=== PATIENT | female | born 1980 | race Caucasian/White ===

== ENCOUNTER 2024-05-09 13:24 | Inpatient (IN) ==
--- NOTE | 2024-05-09 13:36 | ED Triage Note ---
Date of Service May 09, 2024 Provider in Triage Author: Federico Gunter History of Present Illness This patient was briefly evaluated while in triage. An abbreviated physical exam was performed. This patient is a 43-year-old Female who presents to the ED for evaluation sent by [employer] diagnosed with "pneumonia" URI symptoms x 1.5 weeks, worsening SOB, elevated heart rate in office cough and shortness of breath Physical Exam GENERAL: NAD, sat 88-89% tachycardic in 120s, ambulatory CARDIOVASCULAR: RRR RESPIRATORY: BS diminished ABDOMEN: BS x 4. Nontender to palpation. Initial orders for labs and / or imaging were placed and patient was placed in the waiting area until a bed is available. Please see further documentation for the full ED course.
[2024-05-09 14:13] LABS: Basophils # (auto) 0.05 K/uL (0.00-0.20); Basophils % (auto) 0.4 %; Eosinophils # (auto) 0.22 K/uL (0.00-0.50); Hematocrit (blood only) 39.8 % (37.0-47.0); Hemoglobin 13.6 g/dl (12.0-16.0); Immature Granulocytes % (auto) 0.9 %; Lymphocytes # (auto) 1.05 K/uL (1.20-3.40); Lymphocytes % (auto) 9.4 %; Mean Corpuscular Hemoglobin 32.4 pg (25.0-34.0); Mean Corpuscular Hgb Conc 34.2 g/dL (32.0-36.0); Mean Corpuscular Volume 94.8 fL (80.0-100.0); Mean Platelet Volume 9.2 fL (9.4-12.4); Monocytes # (auto) 0.48 K/uL (0.11-0.59); Monocytes % (auto) 4.3 %; Neutrophils # (auto) 9.26 K/uL (1.40-6.50); Platelet Count 479 K/uL (130-400); RDW Coefficient of Variation 11.5 % (11.5-14.5); RDW Standard Deviation 40.1 fL (36.4-46.3); White Blood Count 11.16 K/ul (4.8-10.8)
[2024-05-09 14:24] LABS: Albumin Level 4.2 gm/dl (3.4-5.0); BUN Creatinine Ratio 10.7 (10-20); Bilirubin,Total 0.7 mg/dl (0.2-1.0); Calcium 9.4 mg/dl (8.6-10.3); Creatinine Clr Calc Pharmacy 159.3 ml/min; Est GFR (African American) 133.3 ml/min; Globulin 4.4 gm/dl (2.5-4.0); Potassium 3.4 mmol/L (3.5-5.1); Total Protein 8.6 gm/dl (6.0-8.3)
[2024-05-09] MEDS: ALBUT/IPRATROP 3MG/0.5MG NEB 3 ML VIAL NEB STA ×2 (14:27→14:28)
[2024-05-09 14:31] LABS: Troponin I High Sensitivity 5.5 pg/ml (0-14)
[2024-05-09 14:36] LABS: Pregnancy Test, Serum Negative (Negative)
[2024-05-09 14:38] LABS: Partial Thromboplastin Ratio 0.9; Partial Thromboplastin Time 25 Seconds (21-31); Prothrombin Time 10.9 Seconds (9.0-12.0)
[2024-05-09] MEDS: methylPREDNISolone 125 MG/2 ML VIAL IV STA (14:44)
--- NOTE | 2024-05-09 15:00 | Emergency Department Note ---
History of Present Illness General Chief Complaint: Illness Stated Complaint: PNEUMONIA, REF BY [facility] Time Seen by Provider: 05/09/24 14:02 History of Present Illness Provider Complaint: shortness of breath and cough Onset (ago): week(s) (1.5) Severity: severe Consistency/Duration: + progressively worsening Relieved By: + nothing Exacerbated By: + exertion and + coughing Context: + recent illness (Son has similar symptoms) Known history of: asthma and recurrent pneumonia Associated symptoms: + fever, + cough, + wheezing, + sputum production and + chest congestion; no hemoptysis, no nausea/vomiting, no abdominal pain or no rash Home Medications Medication Instructions Recorded Confirmed Type cetirizine 10 mg tablet (Zyrtec) 10 mg PO DAILY 05/27/23 05/09/24 History desogestrel 0.15 mg-ethinyl 1 tab PO DAILY 05/27/23 05/09/24 History estradiol 0.03 mg tablet (Enskyce) montelukast 10 mg tablet 10 mg PO DAILY 05/09/24 05/09/24 History Allergies Allergy/AdvReac Type Severity Reaction Status Date / Time erythromycin base Allergy Unknown HAPPENED Verified 05/09/24 16:04 AN Past Med/Surg History Problem List (Updated 05/09/24 @ 19:58 by Federico Gunter MD) Hypoxia (Acute) Bilateral pneumonia (Acute) Toe fracture Elevated BP without diagnosis of hypertension Rhinitis, allergic (Acute) Mitral regurgitation (Acute) Hyperlipidemia (Acute) Allergic rhinitis due to pollen (Acute) Allergic rhinitis due to dust (Acute) Allergic rhinitis due to animal dander (Acute) Abnormal finding on examination of thyroid gland (Acute) Premature rupture of membranes (Acute) Ruptured ectopic (Acute 04/09/14) Medical History (Updated 05/09/24 @ 19:58 by Federico Gunter MD) Pneumonia Surgical History S/P exploratory laparotomy S/P tonsillectomy and adenoidectomy Family History Father Diabetes Depression Obesity Hemochromatosis Sister Thyroid disorder Acute colitis Allergic rhinitis Asthma Brother Intolerance to milk products Mother Non-Hodgkin lymphoma Social History Smoking Status: Never smoker Hx Alcohol Use: Yes Preferred Language: Northern Irish marital status: Current Living Situation: Family current occupational status: employed Feels Safe at Home: Yes Physical Exam 2 Vital Signs: Vital Signs - 24 hr 05/09/24 13:34 05/09/24 13:39 05/09/24 14:16 Temperature 36.8 C Temperature Source Temporal Artery Sc an Pulse Rate 123 H 120 H Pulse Rate [Finger ] Pulse Rhythm Pulse Rhythm [Fing er] Pulse Strength [Fi nger] Respiratory Rate 22 Respiratory Effort / Characteristics Respiratory Depth Normal Respiratory Patter n Blood Pressure 154/88 H Blood Pressure [Ri ght Arm] Blood Pressure Suzanna n 110 Blood Pressure Suzanna n [Right Arm] Blood Pressure Pos ition [Right Arm] Pulse Oximetry 90 89 L Oxygen Delivery Me thod Room Air Room Air Oxygen Flow Rate Sepsis Recent Feve r Within 48 Hours Yes Sepsis New/Unexpla ined Change in Men tamra Status No Sepsis Action Take n by Nursing Adv Provider Notif ied Oxygen Flow Rate - Titration 2 Pulse Oximetry Pos t Tiitration 96 05/09/24 14:30 05/09/24 15:19 05/09/24 15:28 Temperature Temperature Source Pulse Rate 119 H Pulse Rate [Finger ] 112 H Pulse Rhythm Regular Pulse Rhythm [Fing er] Regular Pulse Strength [Fi nger] Normal Respiratory Rate 20 20 Respiratory Effort / Characteristics Non-Labored Respiratory Depth Normal Respiratory Patter n Regular Blood Pressure Blood Pressure [Ri ght Arm] 162/93 H Blood Pressure Suzanna n Blood Pressure Suzanna n [Right Arm] 116 Blood Pressure Pos ition [Right Arm] Lying Pulse Oximetry 97 94 92 Oxygen Delivery Me thod Room Air Nasal Cannula Nasal Cannula Oxygen Flow Rate 2 2 Sepsis Recent Feve r Within 48 Hours Sepsis New/Unexpla ined Change in Men tamra Status Sepsis Action Take n by Nursing Oxygen Flow Rate - Titration Pulse Oximetry Pos t Tiitration 05/09/24 16:00 Temperature Temperature Source Pulse Rate Pulse Rate [Finger ] 115 H Pulse Rhythm Pulse Rhythm [Fing er] Regular Pulse Strength [Fi nger] Normal Respiratory Rate 20 Respiratory Effort / Characteristics Spontaneous Respiratory Depth Normal Respiratory Patter n Regular Blood Pressure Blood Pressure [Ri ght Arm] 162/91 H Blood Pressure Suzanna n Blood Pressure Suzanna n [Right Arm] 114 Blood Pressure Pos ition [Right Arm] Pulse Oximetry 91 Oxygen Delivery Me thod Nasal Cannula Oxygen Flow Rate 2 Sepsis Recent Feve r Within 48 Hours Sepsis New/Unexpla ined Change in Men tamra Status Sepsis Action Take n by Nursing Oxygen Flow Rate - Titration Pulse Oximetry Pos t Tiitration Physical Exam: Physical Exam HENT: Exam performed. - Head: Normocephalic and atraumatic. EYES: Conjunctivae and EOM are normal. Right eye exhibits no discharge. Left eye exhibits no discharge. No scleral icterus. NECK: Normal range of motion. Neck supple. No JVD present. CV: Tachycardic rate, regular rhythm, normal heart sounds and intact distal pulses. There is no peripheral edema. Palpable radial pulses bue. PULM/CHEST: Tachypneic. Expiratory wheezes and rhonchi bilaterally. ABD: The abdomen is soft. There is no tenderness. NEURO: Motor and sensation grossly intact. SKIN: Skin is warm and dry. He is not diaphoretic. PSYCH: normal mood and affect. Behavior is normal. Judgment and thought content normal. Course Course 1402: The patient was evaluated in room A9. A complete history and physical exam was performed Cardiac monitoring: An order was placed for continuous cardiac monitoring. The monitor shows a rate of 110 with sinus tachycardia rhythm interpreted by me Patient found to be hypoxic on room air. Supplemental oxygen was applied via nasal cannula which improved the patient's oxygen saturation. Sepsis protocols initiated. DuoNebs and Solu-Medrol ordered for the patient. 1545: Vital signs stable on supplemental oxygen via nasal cannula.Labs show a white blood cell count of 11.[address] of the chest shows no PE but does show multifocal pneumonia. Patient be treated with IV Rocephin and oral doxycycline and admitted to the [facility] hospitalist team. Dr. Vance team notified. Administered Medications Albuterol (Albut/Ipratrop 3mg/0.5mg Neb 3 Ml Vial) 3 ml NEB Q6R CHRISTIANNE; Protocol Stop: 06/08/24 18:59 Last Admin: 05/09/24 19:09 Dose: 3 ml Documented By: LESLI Discontinued Medications Albuterol (Albut/Ipratrop 3mg/0.5mg Neb 3 Ml Vial) 3 ml NEB NOW STA; Protocol Stop: 05/09/24 14:10 Last Admin: 05/09/24 14:27 Dose: 3 ml Documented By: MADDI Albuterol (Albut/Ipratrop 3mg/0.5mg Neb 3 Ml Vial) 3 ml NEB NOW STA; Protocol Stop: 05/09/24 14:11 Last Admin: 05/09/24 14:28 Dose: 3 ml Documented By: MADDI Doxycycline Hyclate (Doxycycline Hyclate 100 Mg Cap) 100 mg PO NOW STA Stop: 05/09/24 15:44 Last Admin: 05/09/24 16:02 Dose: 100 mg Documented By: DAMASO Sodium Chloride (Nss) 1,000 mls @ 999 mls/hr IV .Q1H1M CHRISTIANNE Stop: 05/09/24 14:40 Last Infusion: 05/09/24 17:11 Dose: Infused Documented By: Admin: 05/09/24 16:03 Dose: 999 mls/hr Documented By: DAMASO Sodium Chloride (Nss) 1,000 mls @ 999 mls/hr IV .Q1H1M ONE Stop: 05/09/24 15:09 Last Infusion: 05/09/24 16:07 Dose: Infused Documented By: Admin: 05/09/24 15:03 Dose: 999 mls/hr Documented By: MADDI Ceftriaxone Sodium (Rocephin) 2,000 mg in 50 mls @ 100 mls/hr IV NOW STA Stop: 05/09/24 16:12 Last Infusion: 05/09/24 16:46 Dose: Infused Documented By: Admin: 05/09/24 16:02 Dose: 100 mls/hr Documented By: DAMASO Ioversol (Optiray 320 125ml) 119 ml IV ONCE ONE Stop: 05/09/24 15:01 Last Admin: 05/09/24 15:01 Dose: 119 ml Documented By: LEON Methylprednisolone (Methylprednisolone 125 Mg/2 Ml Vial) 125 mg IV NOW STA Stop: 05/09/24 14:10 Last Admin: 05/09/24 14:44 Dose: 125 mg Documented By: MADDI Medical Decision Making Laboratory Data Attestation: I reviewed the patient's lab results. 05/09/24 13:48 05/09/24 13:48 Lab Results 05/09/24 05/09/24 05/09/24 Range/Units 13:48 14:05 15:13 WBC 11.16 H (4.8-10.8) K/ul RBC 4.20 (4.20-5.40) M/uL Hgb 13.6 (12.0-16.0) g/dl Hct 39.8 (37.0-47.0) % MCV 94.8 (80.0-100.0) fL MCH 32.4 (25.0-34.0) pg MCHC 34.2 (32.0-36.0) g/dL RDW Std Deviation 40.1 (36.4-46.3) fL RDW Coeff of Tu 11.5 (11.5-14.5) % Plt Count 479 H (130-400) K/uL MPV 9.2 L (9.4-12.4) fL Immature Gran % (Auto) 0.9 % Neut % (Auto) 83.0 % Lymph % (Auto) 9.4 % [place] % (Auto) 4.3 % Eos % (Auto) 2.0 % Baso % (Auto) 0.4 % Neut # (Auto) 9.26 H (1.40-6.50) K/uL Lymph # (Auto) 1.05 L (1.20-3.40) K/uL [place] # (Auto) 0.48 (0.11-0.59) K/uL Eos # (Auto) 0.22 (0.00-0.50) K/uL Baso # (Auto) 0.05 (0.00-0.20) K/uL Immature Gran # (Auto) 0.10 (0.01-0.20) K/uL PT 10.9 (9.0-12.0) Seconds INR 1.0 (0.9-1.1) APTT 25 (21-31) Seconds PTT Ratio 0.9 VBG pH 7.39 (7.36-7.41) VBG pCO2 37 L (38-50) mmHg VBG pO2 38 mmHg VBG HCO3 22 mmol/L VBG O2 Saturation 61.8 % VBG Base Excess -2.2 mEq/L Sodium 134 L (136-145) mmol/L Potassium 3.4 L (3.5-5.1) mmol/L Chloride 99 (98-107) mmol/L Carbon Dioxide 25 (21-32) mmol/L Anion Gap 10 (3-11) BUN 6 (6-23) mg/dl Creatinine 0.56 L (0.6-1.2) mg/dl Est Cr Clr Drug Dosing 159.3 ml/min Est GFR ( Amer) 133.3 ml/min Est GFR (Non-Af Amer) 115.0 ml/min BUN/Creatinine Ratio 10.7 (10-20) Glucose 100 H (70-99(Fasting)) mg/dl Lactate 1.2 (0.4-2.0) mmol/L Calcium 9.4 (8.6-10.3) mg/dl Total Bilirubin 0.7 (0.2-1.0) mg/dl AST 55 H (13-39) U/L ALT 33 (7-52) U/L Alkaline Phosphatase 76 (34-104) U/L Troponin I High Sens 5.5 (0-14) pg/ml Total Protein 8.6 H (6.0-8.3) gm/dl Albumin 4.2 (3.4-5.0) gm/dl Globulin 4.4 H (2.5-4.0) gm/dl Albumin/Globulin Ratio 1.0 (0.9-2) Procalcitonin 0.16 (0-0.5) ng/ml HCG, Qual Negative (Negative) Adenovirus (PCR) Not Detected (NotDetected) B. pertussis DNA (PCR) Not Detected (NotDetected) B.parapertussis DNA PCR Not Detected (NotDetected) C. pneumoniae DNA (PCR) Not Detected (NotDetected) Coronavirus OC43 (PCR) Not Detected (NotDetected) Coronavirus HKU1 (PCR) Not Detected (NotDetected) Coronavirus 229E (PCR) Not Detected (NotDetected) SARS-CoV-2 (PCR) Not Detected (NotDetected) Coronavirus NL63 (PCR) Not Detected (NotDetected) Human Metapneumovir PCR Not Detected (NotDetected) Influenza Type A (PCR) Not Detected (NotDetected) Influenza Type B (PCR) Not Detected (NotDetected) M. pneumoniae (PCR) Not Detected (NotDetected) Parainfluenza 1 (PCR) Not Detected (NotDetected) Parainfluenza 2 (PCR) Not Detected (NotDetected) Parainfluenza 3 (PCR) Not Detected (NotDetected) Parainfluenza 4 (PCR) Not Detected (NotDetected) RSV (PCR) Not Detected (NotDetected) Entero/Rhino (PCR) Not Detected (NotDetected) Imaging Data Radiologist's Impression: Chest CTA 05/09/24 13:36 CT angio chest PE protocol CLINICAL HISTORY: Pneumonia, tachycardic, hypoxic TECHNIQUE: Multidetector row helical CT of the chest was performed with angiographic protocol. Coronal and sagittal reformations were obtained. Coronal and sagittal MIPS were obtained from the axial data set and were submitted for review. Automated dose lowering techniques and/or adjustment according to patient size were utilized for this exam. CT DOSE: 767.74 mGy.cm Comparison: None available at the time of this dictation. FINDINGS: Lungs and pleura: Multifocal consolidative opacities are seen in the left greater than right lower lung. Heart and pericardium: Heart size is normal. No pericardial effusion. Vessels: Evaluation for pulmonary embolism is limited due to suboptimal contrast timing. No evidence of central, lobar, or segmental embolus. Mediastinum and tom: Subcentimeter lymph nodes are seen. Chest wall and lower neck: Unremarkable. Abdomen: Unremarkable. Bones: Minimal degenerative changes are seen. IMPRESSION: No pulmonary embolus. Multifocal pneumonia is seen with reactive subcentimeter lymph nodes. ACT 112: Negative or not required by law. Electronically signed by: Mo Corbin M.D. 05/09/2024 3:15 PM ECG Data Attestation: I personally reviewed and interpreted this ECG as follows: Interpretation: Sinus tachycardia with rate of 126. NJ 142 QRS [address] elevation or ST depression. [facility] Narrative 1402: The patient was evaluated in room A9. A complete history and physical exam was performed Cardiac monitoring: An order was placed for continuous cardiac monitoring. The monitor shows a rate of 110 with sinus tachycardia rhythm interpreted by me Patient found to be hypoxic on room air. Supplemental oxygen was applied via nasal cannula which improved the patient's oxygen saturation. Sepsis protocols initiated. DuoNebs and Solu-Medrol ordered for the patient. 1545: Vital signs stable on supplemental oxygen via nasal cannula.Labs show a white blood cell count of 11.[address] of the chest shows no PE but does show multifocal pneumonia. Patient be treated with IV Rocephin and oral doxycycline and admitted to the [facility]ist team. Dr. Vance team notified. Impression & Plan Bilateral pneumonia, Hypoxia Critical Care Time Critical Care Time: Yes Total Critical Care Time: 42 I have personally spent greater than 42 minutes of critical care time in the direct management of this patient. This includes bedside care, interpretation of diagnostic studies, and testing, discussion with consultants, patient, and family members, and other required patient management activities. This 42 minutes is in excess of all separately billable procedures. Discharge Plan Visit Data Chief Complaint: Illness Stated Complaint: PNEUMONIA, REF BY [facility] ED Provider: Federico Gunter Discharge Problem: Bilateral pneumonia, Hypoxia Patient Disposition: Admitted As Inpatient Discharge Instructions Interventions: ED Discharge Assessment Last Done: 05/09/24 19:35 Discharge Problem: Bilateral pneumonia Qualifiers: Pneumonia type: due to unspecified organism Lung location: unspecified part of lung Qualified Code(s): J18.9 - Pneumonia, unspecified organism
[2024-05-09] MEDS: OPTIRAY 320 125ml IV ONE (15:01)
[2024-05-09] MEDS: SODIUM CHLORIDE 0.9% 1,000 ML IV ONE (15:03)
[2024-05-09 15:16] LABS: Adenovirus PCR Not Detected (NotDetected); Bordetella parapertussis PCR Not Detected (NotDetected); Bordetella pertussis PCR Not Detected (NotDetected); Chlamydia pneumoniae PCR Not Detected (NotDetected); Coronavirus 229E PCR Not Detected (NotDetected); Coronavirus CoV-2 (COVID19)PCR Not Detected (NotDetected); Coronavirus HKU1 PCR Not Detected (NotDetected); Coronavirus NL63 PCR Not Detected (NotDetected); Coronavirus OC43PCR Not Detected (NotDetected); Human Metapneumovirus PCR Not Detected (NotDetected); Influenza A PCR Not Detected (NotDetected); Influenza B PCR Not Detected (NotDetected); Mycoplasma pneumoniae PCR Not Detected (NotDetected); Parainfluenza Virus 1 PCR Not Detected (NotDetected); Parainfluenza Virus 2 PCR Not Detected (NotDetected); Parainfluenza Virus 3 PCR Not Detected (NotDetected); Parainfluenza Virus 4 PCR Not Detected (NotDetected); Respiratory Syncytial VirusPCR Not Detected (NotDetected); Rhinovirus/Enterovirus PCR Not Detected (NotDetected)
--- NOTE | 2024-05-09 15:17 | CT Scan Report ---
CT angio chest PE protocol CLINICAL HISTORY: Pneumonia, tachycardic, hypoxic TECHNIQUE: Multidetector row helical CT of the chest was performed with angiographic protocol. Ryan l and sagittal reformations were obtained. Coronal and sagittal MIPS were obtained from the axial matti a set and were submitted for review. Automated dose lowering techniques and/or adjustment according to patient size were utilized for this exam. CT DOSE: 767.74 mGy.cm Comparison: None available at the time of this dictation. FINDINGS: Lungs and pleura: Multifocal consolidative opacities are seen in the left greater than right lower bijan ng. Heart and pericardium: Heart size is normal. No pericardial effusion. Vessels: Evaluation for pulmonary embolism is limited due to suboptimal contrast timing. No evidence of central, lobar, or segmental embolus. Mediastinum and tom: Subcentimeter lymph nodes are seen. Chest wall and lower neck: Unremarkable. Abdomen: Unremarkable. Bones: Minimal degenerative changes are seen. IMPRESSION: No pulmonary embolus. Multifocal pneumonia is seen with reactive subcentimeter lymph nodes. ACT 112: Negative or not required by law. Electronically signed by: Mo Corbin M.D. 05/09/2024 3:15 PM
[2024-05-09 15:26] LABS: Base Excess VBG -2.2 mEq/L; HCO3 VBG 22 mmol/L; Oxygen Saturation VBG 61.8 %; PCO2 VBG 37 mmHg (38-50); PO2 VBG 38 mmHg; pH VBG 7.39 (7.36-7.41)
--- NOTE | 2024-05-09 15:46 | Electrocardiogram Report ---
Test Reason : Blood Pressure : / mmHG Vent. Rate : 126 BPM Atrial Rate : 126 BPM P-R Int : 142 ms QRS Dur : 070 ms QT Int : 314 ms P-R-T Axes : 056 041 026 degrees QTc Int : 454 ms Sinus tachycardia Otherwise normal ECG No previous ECGs available Confirmed by Abelardo Breen ([id number]) on 05/09/2024 3:46:31 PM Referred By: Confirmed By:Abelardo Breen
[2024-05-09] MEDS: cefTRIAXone SODIUM 2,000 MG/50 ML BAG IV STA (16:02)
[2024-05-09] MEDS: DOXYCYCLINE HYCLATE 100 MG CAP PO STA (16:02)
[2024-05-09] MEDS: SODIUM CHLORIDE 0.9% 1,000 ML IV SCH (16:03)
[2024-05-09] MEDS ORDERED: ALBUTEROL 0.083% NEBU SOLN 3 ML VIAL NEB PRN (16:41)
[2024-05-09] MEDS ORDERED: ACETAMINOPHEN 325 MG TAB PO PRN (16:41)
--- NOTE | 2024-05-09 17:08 | History & Physical Report ---
Date of Service May 09, 2024 Assessment & Plan (1) Bilateral pneumonia: Plan: Assessment: 1. Acute bilateral pneumonia. Sputum cultures. Blood cultures. IV doxycycline. IV Rocephin. The patient is alert with erythema-patient antibiotics. In addition we have ordered nebulizers. She had 125 mg of Solu- Medrol the ER. I will give no more steroids at this time this can be evaluated tomorrow on rounds to see if further steroid therapy may be necessary. It is noted that her respiratory viral panel was all negative. 2. History of asthma. 3. Mild acute hypoxemic respiratory failure with pulse ox 89% on room air. Oxygen therapy. Pulmonary toilet as above. It is noted that CTA was performed and negative for pulmonary embolism. 4. Oral contraceptive use. Patient's beta hCG was negative today. We did prenatal genetic counselor her that her oral contraceptives will not be as effective while on oral antibiotic therapy and if active to use additional form of contraception until her next cycle is completed. Patient voiced understanding. Plan: As scribed above. Please refer to orders for further planning. History of Present Illness Chief Complaint: Shortness of breath, cough, fever. Primary Care Provider: Kishan Casey MD This is a pleasant 31-year-old female has had the above symptoms ongoing for approximately 1 and half to 2 weeks. She been having intermittent fevers as well. Her shortness of breath and fevers but worse over the last 36 to 48 hours therefore she presented to the ER for further evaluation and treatment. This is the first time she has sought evaluation for the above symptoms over the last 2 weeks. Presentation to the ER patient was found to be hypoxic 89% on room air. Tachycardic 150 bpm. CTA of the chest was performed was negative for PE but positive for bilateral multifocal pneumonia. White count mildly elevated. Course in ER she received IV Rocephin and IV doxycycline she is allergic to erythromycin based antibiotics. Recall that the patient further evaluation and treatment. Allergies Allergy/AdvReac Type Severity Reaction Status Date / Time erythromycin base Allergy Unknown HAPPENED Verified 05/09/24 16:04 AN Home Medications Medication Instructions Recorded Confirmed Type cetirizine 10 mg tablet (Zyrtec) 10 mg PO DAILY 05/27/23 05/09/24 History desogestrel 0.15 mg-ethinyl 1 tab PO DAILY 05/27/23 05/09/24 History estradiol 0.03 mg tablet (Enskyce) montelukast 10 mg tablet 10 mg PO DAILY 05/09/24 05/09/24 History Past Med/Surg History Problem List (Updated 05/09/24 @ 17:06 by Dakota Vance, PhD, DO) Bilateral pneumonia Toe fracture Elevated BP without diagnosis of hypertension Rhinitis, allergic (Acute) Mitral regurgitation (Acute) Hyperlipidemia (Acute) Allergic rhinitis due to pollen (Acute) Allergic rhinitis due to dust (Acute) Allergic rhinitis due to animal dander (Acute) Abnormal finding on examination of thyroid gland (Acute) Premature rupture of membranes (Acute) Ruptured ectopic (Acute 04/09/14) Medical History (Updated 05/09/24 @ 17:06 by Dakota Vance, PhD, DO) Pneumonia Surgical History S/P exploratory laparotomy S/P tonsillectomy and adenoidectomy Family History Father Diabetes Depression Obesity Hemochromatosis Sister Thyroid disorder Acute colitis Allergic rhinitis Asthma Brother Intolerance to milk products Mother Non-Hodgkin lymphoma Social History Smoking Status: Never smoker Hx Alcohol Use: Yes Preferred Language: Chinese marital status: Current Living Situation: Family current occupational status: employed Feels Safe at Home: Yes Review of Systems Review of Systems: A 10 point review of system was obtained and unless otherwise stated here or in history of present illness are negative and noncontributory to chief complaint. Physical Exam Physical Exam: In General: In general is a 41-year-old female is alert and oriented x 3 at the time my exam. Is mildly tachypneic approximate 26 breaths per minute. She is still tachycardic on 110 bpm. HEENT: Normocephalic atraumatic pupils are equal round and reactive to light bilaterally. No scleral icterus no conjunctival injection external auditory canals are patent septum is in the midline nose is without discharge oral mucosa is pink and moist without lesion. NECK: Supple no rigidity no lymphadenopathy no thyromegaly no carotid bruits no JVD no masses. HEART: Regular rate and rhythm I do not appreciate any ectopy or rub. No murm ur. Mildly tachycardic. LUNGS: Coarse bilaterally with diffuse rhonchi bilaterally. With some diffuse expiratory wheezes. No inspiratory wheezes. ABDOMEN: Soft nontender, no rebound, no peritoneal signs, positive bowel sounds, no appreciable organomegaly. EXTREMITIES: Intact, no peripheral cyanosis, clubbing or edema. Strength is 5 out of 5 in extremities x4, no pathological reflexes. NEUROLOGICAL: Cranial nerves II through XII are grossly intact with no focal deficit elicited upon examination. No tremor. Results & Data Results & Data Vital Signs (Past 12 Hours) Vital Signs Temp Pulse Pulse Resp BP BP Pulse Ox 05/09/24 16:00 115 H 20 162/91 H 91 05/09/24 15:28 119 H 20 92 05/09/24 15:19 94 05/09/24 14:30 112 H 20 162/93 H 97 05/09/24 14:16 120 H 05/09/24 13:39 89 L 05/09/24 13:34 36.8 C 123 H 22 154/88 H 90 O2 Del Method O2 Flow Rate 05/09/24 16:00 Nasal Cannula 2 05/09/24 15:28 Nasal Cannula 2 05/09/24 15:19 Nasal Cannula 2 05/09/24 14:30 Room Air 05/09/24 14:16 05/09/24 13:39 Room Air 05/09/24 13:34 Room Air Code Status & VTE Plan Code Status Full code. I personally discussed with patient today. PG Care Time/CCT Total # of Minutes Spent Total Time Spent with Patient: Total time spent is greater than 50% in coordination of care (as documented) at patient's floor/unit and/or counseling patient: Coding Level of Care Code 14640 INT INP/OBS CARE 3/75MIN Diagnoses Bilateral pneumonia J18.9
[2024-05-09] MEDS: ALBUT/IPRATROP 3MG/0.5MG NEB 3 ML VIAL NEB SCH (19:09)
[2024-05-09 22:56] LABS: Appearance Urine Clear (Clear); Bilirubin Urine Negative (Negative); Blood Urine Negative (Negative); Color Urine Yellow; Glucose Urine UA 1+ (Negative); Ketones Urine 1+ (Negative); Leukocyte Esterase Urine Negative (Negative); Nitrite Urine Negative (Negative); Protein Urine Negative (Negative); Specific Gravity Urine 1.015 (1.000-1.030); Urobilinogen Urine Negative (Negative)
[2024-05-10] MEDS: DOXYCYCLINE HYCLATE 100 MG in DEXTROSE 5% MINI-B 100 ML IV SCH (06:03)
[2024-05-10] MEDS: MONTELUKAST SODIUM 10 MG TABLET PO SCH (08:20)
[2024-05-10] MEDS: CETIRIZINE HCL 10 MG TABLET PO SCH (08:20)
[2024-05-10 10:05] LABS: Basophils # (auto) 0.02 K/uL (0.00-0.20); Basophils % (auto) 0.2 %; Eosinophils # (auto) 0.01 K/uL (0.00-0.50); Eosinophils % (auto) 0.1 %; Hematocrit (blood only) 36.1 % (37.0-47.0); Immature Granulocytes # (auto) 0.18 K/uL (0.01-0.20); Immature Granulocytes % (auto) 1.7 %; Lymphocytes # (auto) 1.07 K/uL (1.20-3.40); Lymphocytes % (auto) 10.1 %; Mean Corpuscular Hemoglobin 31.7 pg (25.0-34.0); Mean Corpuscular Hgb Conc 33.2 g/dL (32.0-36.0); Mean Corpuscular Volume 95.3 fL (80.0-100.0); Mean Platelet Volume 9.1 fL (9.4-12.4); Monocytes # (auto) 0.53 K/uL (0.11-0.59); Neutrophils % (auto) 82.9 %; Platelet Count 438 K/uL (130-400); RDW Coefficient of Variation 11.6 % (11.5-14.5); RDW Standard Deviation 40.1 fL (36.4-46.3); Red Blood Count 3.79 M/uL (4.20-5.40); White Blood Count 10.61 K/ul (4.8-10.8)
[2024-05-10 10:26] LABS: Albumin Level 3.7 gm/dl (3.4-5.0); BUN Creatinine Ratio 13.2 (10-20); Bilirubin Direct 0.1 mg/dl (0-0.2); Bilirubin,Total 0.5 mg/dl (0.2-1.0); C Reactive Protein 4.08 mg/dl (0-0.5); Calcium 8.8 mg/dl (8.6-10.3); Creatinine Clr Calc Pharmacy 172.6 ml/min; Est GFR (African American) 135.7 ml/min; Est GFR (Non-African American) 117.1 ml/min; Magnesium 2.4 mg/dl (1.7-2.4); Potassium 3.3 mmol/L (3.5-5.1); Total Protein 7.4 gm/dl (6.0-8.3)
[2024-05-10] MEDS: POTASSIUM CHLORIDE CRTAB 20 MEQ TABCR PO STA (11:36)
[2024-05-10] MEDS: [UNRECOGNIZED DRUG - OTHER] PO SCH (14:34)
[2024-05-10] MEDS: cefTRIAXone SODIUM 2,000 MG/50 ML BAG IV SCH (17:21)
--- NOTE | 2024-05-10 17:27 | Hospitalist Progress Note ---
Date of Service May 10, 2024 Assessment & Plan (1) Bilateral pneumonia: Plan: Here with community-acquired pneumonia, multifocal, bibasilar With significant acute respiratory failure with hypoxia, requiring 7 L nasal cannula. With mild leukocytosis now improving, tachypnea improving, blood pressures normal. Viral respiratory panel negative, procalcitonin negative, CRP elevated at 4.8 No underlying pulmonary chronic issues except for childhood asthma, but has had pneumonia twice previously in the last 6 years. Does have significant allergies and receives allergy shots Continue ceftriaxone and doxycycline Follow sputum culture once produced and follow blood cultures-no growth to date Add on flutter valve and incentive spirometry Continue albuterol nebs scheduled Continue supplemental O2 and wean off as tolerated (2) Hypoxia: Plan: Requiring 7 L high flow nasal cannula to keep pulse ox greater than 90% CTA chest suboptimal but negative for pulmonary embolism, but shows multifocal pneumonia Continue pulmonary toilet as above and wean off oxygen as able Continue treating pneumonia (3) Asthma: Plan: No acute issues and no need for steroids Continue Singulair and treating allergies with Zyrtec as well (4) Hypokalemia: Plan: Due to poor p.o. intake Replace with oral potassium chloride and follow BMP (5) Rhinitis, allergic: Plan: Continue Zyrtec Gets allergy shots Plan DVT prophylaxis add on Lovenox SQ Disposition-continued stay on PCU Admission and Anticipated Discharge Date Admission Date: May 09, 2024 Subjective Patient reports feeling better. She is coughing up sputum and using the flutter valve now. Not short of breath. Has low appetite.Denies diarrhea Normal sinus rhythm with rates in the 80s to 1 teens on telemetry Physical Exam Constitutional: WD/WN, vitals as above Respiratory: normal respiratory effort Auscultation: + bronchial breath sounds (Bilateral lower lung leon); no crackles and no wheezes Cardiovascular: RRR, no murmur, no edema Psychiatric: A+Ox3, euthymic affect Results & Data Results & Data Vital Signs (Past 12 Hours) Vital Signs Temp Pulse Pulse Resp BP Pulse Ox O2 Del Method 05/10/24 16:21 112 H 05/10/24 15:06 36.9 C 108 H 19 155/89 H 96 Nasal Cannula 05/10/24 13:18 102 H 18 93 Nasal Cannula 05/10/24 11:48 High Flow Nasal Cannula 05/10/24 10:52 36.6 C 97 H 17 164/93 H 92 Nasal Cannula 05/10/24 07:38 89 05/10/24 07:13 36.7 C 96 H 20 142/84 H 97 Nasal Cannula 05/10/24 07:04 92 H 18 91 Nasal Cannula O2 Flow Rate 05/10/24 16:21 05/10/24 15:06 9 05/10/24 13:18 7 05/10/24 11:48 8 05/10/24 10:52 9 05/10/24 07:38 05/10/24 07:13 7 05/10/24 07:04 7 Laboratory Results CBC, BMP, LFTs, CRP, blood cultures reviewed PG Care Time/CCT Total # of Minutes Spent Total Time Spent with Patient: Total time spent is greater than 50% in coordination of care (as documented) at patient's floor/unit and/or counseling patient: Coding Level of Care Code 37476 SUB INP/OBS CARE 2/35MIN Diagnoses Bilateral pneumonia J18.9 Lung location: unspecified part of lung Pneumonia type: due to unspecified organism Hypoxia R09.02 Asthma J45.909 Hypokalemia E87.6 Rhinitis, allergic J30.9 (1) Bilateral pneumonia Lung location: unspecified part of lung Pneumonia type: due to unspecified organism Qualified Code(s): J18.9 - Pneumonia, unspecified organism
[2024-05-11] MEDS: ENOXAPARIN INJ 40 MG/0.4 ML SYR SQ SCH (10:38)
[2024-05-11 10:51] LABS: Basophils # (auto) 0.05 K/uL (0.00-0.20); Basophils % (auto) 0.5 %; Eosinophils # (auto) 0.24 K/uL (0.00-0.50); Eosinophils % (auto) 2.3 %; Hematocrit (blood only) 34.4 % (37.0-47.0); Hemoglobin 11.5 g/dl (12.0-16.0); Immature Granulocytes # (auto) 0.13 K/uL (0.01-0.20); Immature Granulocytes % (auto) 1.2 %; Lymphocytes # (auto) 1.33 K/uL (1.20-3.40); Lymphocytes % (auto) 12.5 %; Mean Corpuscular Hemoglobin 32.2 pg (25.0-34.0); Mean Corpuscular Hgb Conc 33.4 g/dL (32.0-36.0); Mean Corpuscular Volume 96.4 fL (80.0-100.0); Mean Platelet Volume 9.1 fL (9.4-12.4); Monocytes % (auto) 5.6 %; Neutrophils % (auto) 77.9 %; Platelet Count 460 K/uL (130-400); RDW Coefficient of Variation 11.9 % (11.5-14.5); RDW Standard Deviation 41.9 fL (36.4-46.3); Red Blood Count 3.57 M/uL (4.20-5.40); White Blood Count 10.65 K/ul (4.8-10.8)
[2024-05-11 11:04] LABS: Albumin Globulin Ratio 1.1 (0.9-2); Albumin Level 3.7 gm/dl (3.4-5.0); BUN Creatinine Ratio 16.4 (10-20); Bilirubin,Total 0.5 mg/dl (0.2-1.0); C Reactive Protein 2.65 mg/dl (0-0.5); Calcium 8.8 mg/dl (8.6-10.3); Creatinine Clr Calc Pharmacy 163.1 ml/min; Est GFR (African American) 134.1 ml/min; Est GFR (Non-African American) 115.7 ml/min; Globulin 3.4 gm/dl (2.5-4.0); Potassium 3.8 mmol/L (3.5-5.1); Total Protein 7.1 gm/dl (6.0-8.3)
[2024-05-11] MEDS: SACCHAROMYCES BOULARDII 250 MG CAP PO SCH (15:07)
--- NOTE | 2024-05-11 16:00 | Hospitalist Progress Note ---
Date of Service May 11, 2024 Assessment & Plan (1) Bilateral pneumonia: Plan: Here with community-acquired pneumonia, multifocal, bibasilar With significant acute respiratory failure with hypoxia, requiring 7 L nasal cannula initially and now weaned to 3LNC, improving. With mild leukocytosis now resolved, tachypnea resolved, blood pressures normal. Viral respiratory panel negative, procalcitonin negative, CRP elevated at 4.8 and now down to 2.6 No underlying pulmonary chronic issues except for childhood asthma, but has had pneumonia twice previously in the last 6 years. Does have significant allergies and receives allergy shots Continue ceftriaxone and doxycycline Follow sputum culture -prelim scant normal harsha Follow blood cultures-no growth to date Continue on flutter valve and incentive spirometry Continue albuterol nebs scheduled Continue supplemental O2 and wean off as tolerated Add on probiotics for loose stool and if has a third loose stool, check C. diff (2) Hypoxia: Plan: Requiring 7 L high flow nasal cannula to keep pulse ox greater than 90%, now weaned to 3LNC CTA chest suboptimal but negative for pulmonary embolism, but shows multifocal pneumonia Continue pulmonary toilet as above and wean off oxygen as able Continue treating pneumonia (3) Asthma: Plan: No acute issues and no need for steroids Continue Singulair and treating allergies with Zyrtec as well (4) Hypokalemia: Plan: Due to poor p.o. intake-replaced and resolved follow BMP (5) Rhinitis, allergic: Plan: Continue Zyrtec Gets allergy shots Plan DVT prophylaxis- Lovenox SQ Disposition-continued stay on PCU, improving, possible dc to home in 1-2 days Admission and Anticipated Discharge Date Admission Date: May 09, 2024 Subjective Feeling better today, can take deeper breaths. Had 2 loose stools this AM, none since. Appetite still low but trying to eat a little more. Weaned down to 3LNC when I saw her Tele with ST, NSR, rates 90-100s Physical Exam 2 Constitutional: WD/WN, vitals as above Respiratory: normal respiratory effort Auscultation: + bronchial breath fazal nds (Bilateral lower lung leon but less than yesterday); no crackles and no wheezes Cardiovascular: RRR, no murmur, no edema Psychiatric: A+Ox3, euthymic affect Results & Data Results & Data Vital Signs (Past 12 Hours) Vital Signs Temp Pulse Pulse Resp BP Pulse Ox O2 Del Method 05/11/24 15:14 36.8 C 98 H 16 136/84 92 High Flow Nasal Cannula 05/11/24 15:12 96 High Flow Nasal Cannula 05/11/24 14:06 91 H 05/11/24 13:28 85 16 96 Nasal Cannula 05/11/24 11:51 High Flow Nasal Cannula 05/11/24 11:17 36.5 C 96 H 18 152/91 H 95 Nasal Cannula 05/11/24 09:00 95 High Flow Nasal Cannula 05/11/24 08:15 90 High Flow Nasal Cannula 05/11/24 08:00 93 H 05/11/24 07:43 36.5 C 88 18 151/97 H 98 Nasal Cannula 05/11/24 07:20 88 15 99 Nasal Cannula O2 Flow Rate 05/11/24 15:14 4 05/11/24 15:12 4 05/11/24 14:06 05/11/24 13:28 5 05/11/24 11:51 05/11/24 11:17 5 05/11/24 09:00 5 05/11/24 08:15 3 05/11/24 08:00 05/11/24 07:43 4 05/11/24 07:20 5 Laboratory Results CBC, BMP, LFTs, CRP, sputum cx, blood cxs reviewed PG Care Time/CCT Total # of Minutes Spent Total Time Spent with Patient: Total time spent is greater than 50% in coordination of care (as documented) at patient's floor/unit and/or counseling patient: Coding Level of Care Code 14307 SUB INP/OBS CARE 2/35MIN Diagnoses Bilateral pneumonia J18.9 Lung location: unspecified part of lung Pneumonia type: due to unspecified organism Hypoxia R09.02 Asthma J45.909 Hypokalemia E87.6 Rhinitis, allergic J30.9 (1) Bilateral pneumonia Lung location: unspecified part of lung Pneumonia type: due to unspecified organism Qualified Code(s): J18.9 - Pneumonia, unspecified organism
[2024-05-12 06:54] LABS: Basophils # (auto) 0.02 K/uL (0.00-0.20); Basophils % (auto) 0.3 %; Eosinophils # (auto) 0.36 K/uL (0.00-0.50); Eosinophils % (auto) 4.9 %; Hematocrit (blood only) 34.2 % (37.0-47.0); Hemoglobin 11.1 g/dl (12.0-16.0); Immature Granulocytes # (auto) 0.08 K/uL (0.01-0.20); Immature Granulocytes % (auto) 1.1 %; Lymphocytes # (auto) 1.47 K/uL (1.20-3.40); Lymphocytes % (auto) 20.2 %; Mean Corpuscular Hemoglobin 31.7 pg (25.0-34.0); Mean Corpuscular Hgb Conc 32.5 g/dL (32.0-36.0); Mean Corpuscular Volume 97.7 fL (80.0-100.0); Mean Platelet Volume 9.3 fL (9.4-12.4); Monocytes # (auto) 0.47 K/uL (0.11-0.59); Monocytes % (auto) 6.5 %; Neutrophils # (auto) 4.88 K/uL (1.40-6.50); Platelet Count 436 K/uL (130-400); RDW Coefficient of Variation 11.9 % (11.5-14.5); RDW Standard Deviation 42.5 fL (36.4-46.3); White Blood Count 7.28 K/ul (4.8-10.8)
[2024-05-12 07:11] LABS: Albumin Globulin Ratio 1.1 (0.9-2); Albumin Level 3.3 gm/dl (3.4-5.0); Bilirubin,Total 0.5 mg/dl (0.2-1.0); Calcium 8.4 mg/dl (8.6-10.3); Creatinine Clr Calc Pharmacy 179.3 ml/min; Est GFR (African American) 138.4 ml/min; Est GFR (Non-African American) 119.4 ml/min; Magnesium 2.2 mg/dl (1.7-2.4); Potassium 3.8 mmol/L (3.5-5.1); Total Protein 6.3 gm/dl (6.0-8.3)
[2024-05-12] MEDS ORDERED: ALBUT/IPRATROP 3MG/0.5MG NEB 3 ML VIAL NEB PRN (08:17)
--- NOTE | 2024-05-12 09:54 | XRay Report ---
TWO VIEW CHEST CLINICAL HISTORY: Follow-up pneumonia. FINDINGS: PA and lateral chest radiographs are correlated with chest CT dated 05/09/2024. The cardiome diastinal silhouette is unremarkable. There is a small left pleural effusion with left basilar consol idation. Milder consolidation is seen at the right lung base. There is no pneumothorax. The bony thor ax appears intact. IMPRESSION: There is a small left pleural effusion with left basilar consolidation, as well as milder consolidation at the right lung base. This is likely similar to the 05/09/2024 CT scan and typical fo r pneumonia. Radiographic follow-up to resolution is recommended. ACT 112: Negative or not required by law. Electronically signed by: Jose Carlos Cristina M.D. 05/12/2024 9:53 AM
--- NOTE | 2024-05-12 13:49 | Discharge Summary ---
Discharge Summary Date of Service May 12, 2024 Principal Dx & Hospital Course #1 = Principal Diagnosis (1) Bilateral pneumonia: Here with community-acquired pneumonia, multifocal, bibasilar With significant acute respiratory failure with hypoxia, requiring 7 L nasal cannula initially and now weaned to room air, much improved With mild leukocytosis now resolved, tachypnea resolved, blood pressures normal. Viral respiratory panel negative, procalcitonin negative, CRP elevated at 4.8 and then down to 2.6 No underlying pulmonary chronic issues except for childhood asthma, but has had pneumonia twice previously in the last 6 years. Does have significant allergies and receives allergy shots Repeat CXR 05/12/24 with bibasilar PNA, L>R with small left pleural effusion No further leukocytosis, afebrile, feeling much better, no further hypoxia Received ceftriaxone and doxycycline (allergic to erythromycin) x 3 days, dc to home on cefdinir 300mg po bid and doxy 100mg po bid x 4 more days Sputum culture -normal harsha Follow blood cultures-remain no growth to date Continue on flutter valve and incentive spirometry at home Chek repeat CXR in 4 weeks to ensure resolution (2) Hypoxia: Requiring 7 L high flow nasal cannula to keep pulse ox greater than 90%, now weaned to room air and passed a 2 step walk test CTA chest suboptimal but negative for pulmonary embolism, but shows multifocal pneumonia (3) Transaminitis: Mild elevation of AST and ALT while here but normal TBili and alk phos. No abd pain. Could be medication side effect vs inflammation of liver from PNA Recommend repeat LFTs in 1 week with PCP (4) Asthma: No acute issues and no need for steroids Continue Singulair and treating allergies with Zyrtec as well (5) Hypokalemia: Due to poor p.o. intake-replaced and resolved (6) Rhinitis, allergic: Continue Zyrtec Gets allergy shots Plan DVT prophylaxis- Lovenox SQ Disposition-much improved, stable for dc to home Notes For Next Care Provider Needs repeat CXR in 4 weeks to ensure resolution of PNA Needs LFTs checked in 1 week for mild transaminitis Admission HPI Per Admitting Provider This is a pleasant 31-year-old female has had the above symptoms ongoing for approximately 1 and half to 2 weeks. She been having intermittent fevers as well. Her shortness of breath and fevers but worse over the last 36 to 48 hours therefore she presented to the ER for further evaluation and treatment. This is the first time she has sought evaluation for the above symptoms over the last 2 weeks. Presentation to the ER patient was found to be hypoxic 89% on room air. Tachycardic 150 bpm. CTA of the chest was performed was negative for PE but positive for bilateral multifocal pneumonia. White count mildly elevated. Course in ER she received IV Rocephin and IV doxycycline she is allergic to erythromycin based antibiotics. Recall that the patient further evaluation and treatment. Discharge Exam Constitutional WD/WN, vitals as above Respiratory normal respiratory effort Auscultation: + bronchial breath sounds (Bilateral lower lung leon but less than yesterday); no crackles and no wheezes Cardiovascular RRR, no murmur, no edema Psychiatric A+Ox3, euthymic affect Updated Medication List Medication Instructions Recorded Confirmed Type cetirizine 10 mg tablet (Zyrtec) 10 mg PO DAILY 05/27/23 05/09/24 History desogestrel 0.15 mg-ethinyl 1 tab PO DAILY 05/27/23 05/09/24 History estradiol 0.03 mg tablet (Enskyce) montelukast 10 mg tablet 10 mg PO DAILY 05/09/24 05/09/24 History benzonatate 100 mg capsule 100 mg PO TID PRN cough #15 caps 05/12/24 Rx cefdinir 300 mg capsule 300 mg PO BID #8 caps 05/12/24 Rx doxycycline hyclate 100 mg tablet 100 mg PO BID #8 tabs 05/12/24 Rx Hospital Stay Data Consultations 05/09/24 15:45 ED Decision to Admit Stat Diagnostic Imagining Performed 05/09/24 13:36 CT angio chest PE protocol Stat Pending Results Patient Have Any Pending Studies at Discharge: Yes (Final blood cultures-no growth to date) Discharge Instructions Given to Patient (Per Discharging Provider) Please finish out 4 more days of the two antibiotics--> cefdinir 300mg twice a day and doxycycline 100mg twice a day. You will need a chest xray in 4 weeks to ensure your pneumonia is cleared. You had a mild elevation of your liver enzymes and this may be from your illness inflaming the liver but could also be a side effect of the antibiotics. Please have your PCP check your liver enzymes in 1 week to ensure they are returning to normal. Continue the flutter valve and incentive spirometry several times daily. It was a pleasure taking care of you! Meryl Razo M.D. Total Time Total Time Spent Total Time Spent (In Minutes): 35 min Total Time Includes: Examination of the Patient, Discharge Planning and Medication Reconciliation Coding Level of Care Code 76047 INP/OBS DISCH >30 MIN Diagnoses Bilateral pneumonia J18.9 Lung location: unspecified part of lung Pneumonia type: due to unspecified organism Hypoxia R09.02 Transaminitis R74.01 Asthma J45.909 Hypokalemia E87.6 Rhinitis, allergic J30.9
== END 2024-05-12 15:15 | disposition home or self-care (01) | DRG 193 ==
LOC: ED 13:24 → SUATTDRO 17:34 → EDINP 17:34 → 2S 21:05